=== PATIENT | female | born 2000 | race Caucasian/White ===

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

== ENCOUNTER 2023-06-22 00:15 | Outpatient (CLI) | payer OTHER ==
[2023-06-22 02:02] VITALS: BP 108/60; PULSE 78; RESP 14; TEMP 97.2
--- NOTE | 2023-06-27 11:17 | P.MSEPDOC ---
Presenting Problems - Arrival Data Date of Arrival on Unit: 06/22/23 Time of Arrival on Unit: 00:15 Mode of Transport: Ambulatory - Complaint OB-Reason for Admission/Chief Complaint: Other Comment: pt states she feels like her "vagina is open, going to fall out." pt also c/o vaginal / pelvic pressure, sharp shooting pains, constant lower back pain rating it 10/10, fatigue, and constant, all over itching. pt states she called the office today about the itching, and she has an appt scheduled for tomorrow with Dr Thrasher. pt denies any other complaints or complications with . Medical History - Information : 3 Para: 1 Term: 1 : 0 Abortions: Spontaneous or Elective: 1 Number of Living Children: 1 - Gestational Age Gestational Age by TANYA (wks/days): 28 Weeks and 6 Days Review of Systems - Review of Systems Constitutional: No problems Breast: No problems ENT: No problems Cardiovascular: No problems Respiratory: No problems Gastrointestinal: No problems Genitourinary: No problems Musculoskeletal: No problems Neurological: No problems Skin: No problems Vital Signs - Temperature Temperature: 97.2 F Temperature Source: Temporal Artery Scan - Pulse Pulse Oximetery Pulse Rate: 78 Pulse Assessment Method: Pulse Oximetry - Respirations Respiratory Rate: 14 Oxygen Delivery Method: Room Air O2 Sat by Pulse Oximetry: 100 - Blood Pressure Right Arm Blood Pressure: 108/60 Blood Pressure Mean: 76 Blood Pressure Source: Automatic Cuff Medical Screen Scoring - Assessment - Baby A Baseline FHR: 125 Heart Rate - NICHD Category: Category I (Normal) NST: Reactive Physician Notification - Physician Notified Physician Notified Date: 06/22/23 Physician Notified Time: 00:57 Physician: Yash Thrasher Order Received: Yes Maternal Triage Index - Maternal Triage Index Presenting for scheduled procedure w/no complaint: No - Stat/Priority 1 Stat Priority 1: No - Urgent/Priority 2 Urgent Priority 2: No - Prompt/Priority 3 Prompt Priority 3: No - Non-Urgent/Priority 4 Non-Urgent Priority 4: Yes Criteria Met for Priority 4: Common discomforts of Disposition - Disposition OB Disposition: Discharge to home, Written follow up instructions reviewed Discharge Date: 06/22/23 Discharge Time: 01:05 I agree with the RN Medical Screening Exam: Yes Physician's MSE Comment: I have neither seen nor examined the patient. Case reviewed; plan agreed upon as documented in EMR&OBIX.: Yes Diagnosis: RELATED CONDITIONS, UNSPECIFIED, THIRD TRIMESTER
== END 2023-06-22 01:05 | disposition home or self-care (01) ==
LOC: FBPOP 00:15
PROVIDERS: ATTEND Obstetrics & Gynecology
DX: O26.893 Other specified pregnancy related conditions, third trimester (principal); O26.813 Pregnancy related exhaustion and fatigue, third trimester; M54.50 Low back pain, unspecified; R10.2 Pelvic and perineal pain; L29.9 Pruritus, unspecified; Z3A.28 28 weeks gestation of pregnancy; Z88.2 Allergy status to sulfonamides
CPT/HCPCS: 59025; G0463; 99213

== ENCOUNTER 2023-06-24 16:06 | Outpatient (CLI) | payer OTHER ==
[2023-06-24 19:37] VITALS: BP 108/55; PULSE 85; RESP 17
--- NOTE | 2023-06-27 11:18 | P.MSEPDOC ---
Presenting Problems - Arrival Data Date of Arrival on Unit: 06/24/23 Time of Arrival on Unit: 16:06 Mode of Transport: Ambulatory - Complaint OB-Reason for Admission/Chief Complaint: Rule Out PROM, Pain Comment: pt presents to triage for pain pressure, possible SROM at 1430, Medical History - Information : 2 Para: 1 Term: 1 : 0 Abortions: Spontaneous or Elective: 0 Number of Living Children: 1 - Gestational Age Gestational Age by TANYA (wks/days): 29 Weeks and 1 Days Review of Systems - Review of Systems Constitutional: No problems Breast: No problems ENT: No problems Cardiovascular: No problems Respiratory: No problems Gastrointestinal: No problems Genitourinary: No problems Musculoskeletal: No problems Neurological: No problems Skin: No problems Vital Signs - Pulse Apical Pulse Rate: 85 Pulse Assessment Method: Automatic Cuff - Respirations Respiratory Rate: 17 Oxygen Delivery Method: Room Air - Blood Pressure Right Arm Blood Pressure: 108/55 Blood Pressure Mean: 72 Blood Pressure Source: Automatic Cuff Medical Screen Scoring - Cervical Exam Dilation (cm): 1.5 Membranes: Intact - Uterine Contractions Intensity: Mild Resting: Soft to palpation - Assessment - Baby A Baseline FHR: 135 Heart Rate - NICHD Category: Category I (Normal) NST: Reactive Physician Notification - Physician Notified Physician Notified Date: 06/24/23 Physician Notified Time: 16:48 Physician: Yash Thrasher New Order Received: Yes - Notification Comment Comment: cervical exam 1.5/thick/high, ffn negative, pt discharged home, follow up on Wednesday in office Maternal Triage Index - Maternal Triage Index Presenting for scheduled procedure w/no complaint: No - Stat/Priority 1 Stat Priority 1: No - Urgent/Priority 2 Urgent Priority 2: Yes Provider Notified: Yash Thrasher Provider Notified Time: 16:48 Criteria Met for Priority 2: pt presents to triage for pain pressure, possible SROM at 1430, Disposition - Disposition OB Disposition: Triage, Discharge to home, Written follow up instructions reviewed Discharge Date: 06/24/23 Discharge Time: 18:20 I agree with the RN Medical Screening Exam: Yes Physician's MSE Comment: I have neither seen nor examined the patient. Case reviewed; plan agreed upon as documented in EMR&OBIX.: Yes Diagnosis: RELATED CONDITIONS, UNSPECIFIED, THIRD TRIMESTER
== END 2023-06-24 18:20 | disposition home or self-care (01) ==
LOC: FBPOP 16:06
PROVIDERS: ATTEND Obstetrics & Gynecology
DX: O47.03 False labor before 37 completed weeks of gestation, third trimester (principal); Z3A.29 29 weeks gestation of pregnancy; Z88.2 Allergy status to sulfonamides
CPT/HCPCS: 59025; 84112; 82731; G0463; 99213

== ENCOUNTER 2023-07-22 17:51 | Outpatient (CLI) | payer OTHER ==
[2023-07-22] MEDS: LACTATED RINGERS 1,000 ML IV SCH (19:31)
[2023-07-22 20:00] LABS: RBC,Urine <1 /hpf (0-5); Squamous Epithelial Cell,Urine 1 /hpf (0-4); WBC,Urine <1 /hpf (0-5)
[2023-07-22 20:36] LABS: Appearance,Urine Clear (Clear); Bilirubin,Urine Negative (Negative); Blood,Urine Negative (Negative); Color,Urine Colorless; Glucose,Urine (UA) Negative (Negative); Ketones,Urine Negative (Negative); Leukocyte Esterase,Urine Negative (Negative); Nitrite,Urine Negative (Negative); PH, Urine 7.5 (5.0-8.0); Protein,Urine Negative (Negative); Specific Gravity,Urine 1.006 (1.001-1.035); Urobilinogen,Urine <2.0 mg/dL (<2.0)
[2023-07-22] MEDS ORDERED: TERBUTALINE 1 MG/ML VIAL SQ PRN (20:49)
[2023-07-22] MEDS: BETAMET ACET-BETAMETH SOD PHOS 6 MG/ML MDV IM SCH (21:09)
[2023-07-22] MEDS ORDERED: CALCIUM GLUCONATE 1 GM/10 ML VIAL IV PRN (21:14)
[2023-07-22] MEDS: MAGNESIUM SULFATE GM 6 GM in SODIUM CHLORIDE 0.9% 100 ML IVPB ONE (21:34)
[2023-07-22] MEDS ORDERED: MAGNESIUM SULFATE 500 MG/ML 20 ML VIAL ONE (21:37)
[2023-07-22] MEDS ORDERED: SODIUM CHLORIDE 0.9% 100 ML BAG ONE (21:37)
[2023-07-22] MEDS: MAGNESIUM SULFATE-WATER PMX 20 GM in WATER FOR INJECTION 1 500ML.BAG IV SCH (21:58)
--- NOTE | 2023-07-22 22:09 | P.HPOB ---
History of Present Illness H&P Date: 07/22/23 Chief Complaint: 33-1/7 weeks, labor The patient is a 23-year-old 3 para 1-0-1-1 admitted to triage at 33-1/7 weeks as established by last menstrual period and confirmed by 7-week ultrasound. She is admitted with complaint of possible rupture of membranes wh ich was ruled out with a negative amnio sure. She was, however, found to have irregular contractions at which time initial cervical check demonstrated I reported cervix that was closed and thick. She had IV hydration started and underwent urinalysis which was found to be negative. Her contractions continued and she reported some discomfort and, prior to initiating treatment with terbutaline, her cervix was rechecked at which time it was noted to be 1 cm dilated, approximately 70% effaced, with the vertex and presentation at -2-3 station. Given the change in cervix, preparation is being made for transfer to tertiary care center after starting magnesium sulfate toco lysis. The first dose of steroids has been given and will likely be repeated in 12 to 24 hours. heart tones are category 1 in nature. Obstetrical history: 3 para 1-0-1-1 with 1 term vaginal delivery and 1 early loss without D&C. Current statistics are listed in history of present illness. EDC of 09/08/2023 was established by last menstrual period and confirmed by 7-week ultrasound. Laboratory workup is unavailable to me at this time as my remote application has failed. The full records can be forwarded in the morning when the office is open. All labs to this point have been normal to my knowledge. Gynecologic history: Unremarkable with no history of any infections to include STDs. Review of Systems Review of systems is confined to history of present illness. Past Medical History Past Medical History: Asthma History of Any Multi-Drug Resistant Organisms: MRSA Date of last positivie culture/infection: 2016 MDRO Source:: L leg Past Surgical History: No Surgical Hx Reported Past Anesthesia/Blood Transfusion Reactions: No Reported Reaction Smoking Status: Never smoker - Past Family History Mother Family Medical History: Asthma Additional Family Medical History / Comment(s): depression, anxiety Medications and Allergies Home Medications Medication Instructions Recorded Confirmed Type Vit No.180/Iron/Folic 1 tab PO DAILY 02/11/20 07/22/23 History [ Plus Tablet] FLUoxetine HCL [PROzac] 40 mg PO DAILY 06/22/23 07/22/23 History Omeprazole [PriLOSEC] 10 mg PO DAILY 06/22/23 07/22/23 History Allergies Allergy/AdvReac Type Severity Reaction Status Date / Time Sulfa (Sulfonamide Allergy Rash/Hives Verified 06/22/23 01:18 Antibiotics) Exam Intake and Output 07/22/23 07/22/23 07/22/23 06:59 14:59 22:59 Other: Weight 60.328 kg In general, this is a well-developed, well-nourished white female in no acute distress. Her heart has a regular rhythm and rate without murmur. Her lungs are clear to auscultation bilaterally in all desai. Her abdomen is gravid, nondistended, has normal active bowel sounds, soft, nontender, and without any palpable masses aside from the uterine fundus. Her extremities are without any cyanosis, clubbing, or edema and are nontender to palpation bilaterally. Digital cervical examination as noted in history of present illness is most recently found to be 1 cm dilated, 70% effaced, the vertex and presentation of -2-3 station. There is no evidence of rupture of membranes. Assessment and Plan (1) 33 weeks gestation of Current Visit: Yes Status: Acute Code(s): Z3A.33 - 33 WEEKS GESTATION OF SNOMED Code(s): 71539046 (2) labor Current Visit: Yes Status: Acute Code(s): O60.00 - LABOR WITHOUT DELIVERY, UNSPECIFIED TRIMESTER SNOMED Code(s): 0662669 Plan: The patient is being started on magnesium sulfate, 6 g loading dose with 2 g/h to follow. She has additionally received her first dose of betamethasone 12.5 mg intramuscularly which will be repeated in likely 12 to 24 hours at a tertiary care institution. Antibiotic prophylaxis will additionally be started with penicillin G, 5,000,000 units IV to be continued at the next institution at likely 2,500,000 units every 4-6 hours. wellbeing is noted at this time and the patient is stable for transfer. I have discussed the case with the attending physician at [facility], Dr. Aziza Guan, who has accepted transfer. Preparation is being made for interfacility transfer currently.
[2023-07-22] MEDS: PENICILLIN G POTASSIUM 5,000,000 UNIT in DEXTROSE 5% IN WATER 100 ML IVPB STA (22:17)
[2023-07-22 23:23] VITALS: BP 112/57; PULSE 81
== END 2023-07-22 22:55 | disposition other institution (70) ==
LOC: FBPOP 17:51
PROVIDERS: ATTEND Obstetrics & Gynecology
DX: O60.03 Preterm labor without delivery, third trimester (principal); O09.293 Supervision of pregnancy with other poor reproductive or obstetric history, third trimester; O99.513 Diseases of the respiratory system complicating pregnancy, third trimester; J45.909 Unspecified asthma, uncomplicated; Z88.2 Allergy status to sulfonamides; Z3A.33 33 weeks gestation of pregnancy
CPT/HCPCS: 59025; 96361; 96365; 96367; 51701; 96372; 84112; 36415; 81003; G0463; J3475 ×2; J2540; J0702; 99215

== ENCOUNTER 2023-08-02 17:56 | Outpatient (CLI) | payer OTHER ==
[2023-08-02 19:57] VITALS: BP 109/58; PULSE 82; RESP 16; TEMP 97.6
--- NOTE | 2023-09-08 18:19 | P.MSEPDOC ---
Presenting Problems - Arrival Data Date of Arrival on Unit: 08/02/23 Time of Arrival on Unit: 17:56 Mode of Transport: Ambulatory - Complaint OB-Reason for Admission/Chief Complaint: Rule Out PROM Medical History - Information : 3 Para: 1 Term: 1 : 0 Abortions: Spontaneous or Elective: 1 Number of Living Children: 1 - Gestational Age Gestational Age by TANYA (wks/days): 34 Weeks and 5 Days - History Comment: labor- transferred to [facility] 2 weeks ago Review of Systems - Review of Systems Constitutional: No problems Breast: No problems ENT: No problems Cardiovascular: No problems Respiratory: No problems Gastrointestinal: No problems Genitourinary: No problems Musculoskeletal: No problems Neurological: No problems Skin: No problems Vital Signs - Temperature Temperature: 97.6 F Temperature Source: Temporal Artery Scan - Pulse Right Sitting Pulse Rate: 82 Pulse Assessment Method: Automatic Cuff - Respirations Respiratory Rate: 16 Oxygen Delivery Method: Room Air O2 Sat by Pulse Oximetry: 98 - Blood Pressure Right Arm Blood Pressure: 109/58 Blood Pressure Mean: 75 Blood Pressure Source: Automatic Cuff Medical Screen Scoring - Cervical Exam Dilation (cm): 1.5 Effacement (%): 50 Station: -2 Membranes: Intact - Uterine Contractions Intensity: Mild Resting: Soft to palpation - Assessment - Baby A Baseline FHR: 125 Heart Rate - NICHD Category: Category I (Normal) NST: Reactive Physician Notification - Physician Notified Physician Notified Date: 08/02/23 Physician Notified Time: 19:06 Physician: Holly Izaguirre New Order Received: Yes (d/c home if vag exam same after 1 hour) Maternal Triage Index - Urgent/Priority 2 Urgent Priority 2: Yes Provider Notified: Holly Izaguirre Provider Notified Time: 19:06 Criteria Met for Priority 2: reactive nst, irregular contractions, negative amnisure, vag exam same after 1 hour Disposition - Disposition OB Disposition: Discharge to home Discharge Date: 08/02/23 Discharge Time: 19:40 I agree with the RN Medical Screening Exam: Yes Case reviewed; plan agreed upon as documented in EMR&OBIX.: Yes Diagnosis: FALSE LABOR BEFORE 37 COMPLETED WEEKS OF GEST, THIRD TRI
== END 2023-08-02 19:40 | disposition home or self-care (01) ==
LOC: FBPOP 17:56
PROVIDERS: ATTEND Obstetrics & Gynecology Obstetrics
DX: O47.03 False labor before 37 completed weeks of gestation, third trimester (principal); Z3A.34 34 weeks gestation of pregnancy; Z88.2 Allergy status to sulfonamides
CPT/HCPCS: 59025; 84112; G0463; 99213

== ENCOUNTER 2023-08-10 13:52 | Inpatient (IN) | payer OTHER ==
[2023-08-10] MEDS ORDERED: miSOPROStoL 200 MCG TAB PO PRN (14:55)
[2023-08-10] MEDS ORDERED: LIDOCAINE 0.5% (PF) 5 MG/ML (50 ML SDV) SQ PRN (14:55)
[2023-08-10] MEDS ORDERED: OXYTOCIN 10 UNIT/ML 1 ML VIAL IM PRN (14:55)
[2023-08-10] MEDS ORDERED: TERBUTALINE 1 MG/ML VIAL SQ PRN (14:55)
[2023-08-10] MEDS ORDERED: METHYLERGONOVINE 0.2 MG/ML 1 ML AMP IM PRN (14:55)
[2023-08-10] MEDS ORDERED: TRANEXAMIC 1,000 MG/100ML-NACL 1,000 MG in EMPTY BAG 1 BAG IV PRN (14:55)
[2023-08-10] MEDS ORDERED: CARBOPROST TROMETHAMINE 250 MCG/ML 1 ML AMP IM PRN (14:55)
[2023-08-10] MEDS: OXYTOCIN 30 UNITS/500 ML NS 30 UNIT in SALINE 1 500ML.BAG IV SCH (15:25)
[2023-08-10] MEDS: LACTATED RINGERS 1,000 ML IV SCH (15:25)
[2023-08-10 15:26] LABS: Basophils # (A) 0.1 k/uL (0-0.2); Basophils % (A) 0 %; Eosinophils # (A) 0.1 k/uL (0-0.7); Eosinophils % (A) 1 %; HCT 31.7 % (34.0-46.0); HGB 10.6 gm/dL (11.4-16.0); Lymphocytes # (A) 1.8 k/uL (1.0-4.8); Lymphocytes % (A) 14 %; MCH 28.5 pg (25.0-35.0); MCHC 33.5 g/dL (31.0-37.0); MCV 85.1 fL (80.0-100.0); Mean Platelet Volume 9.6; Monocytes # (A) 0.6 k/uL (0-1.0); Monocytes % (A) 4 %; Neutrophils # (A) 9.9 k/uL (1.3-7.7); Neutrophils % (A) 79 %; Platelet Count 227 k/uL (150-450); RBC 3.73 m/uL (3.80-5.40); RDW 12.9 % (11.5-15.5); WBC 12.7 k/uL (3.8-10.6)
[2023-08-10] MEDS: PENICILLIN G POTASSIUM 5,000,000 UNIT in DEXTROSE 5% IN WATER 100 ML IVPB STA (15:30)
[2023-08-10 16:01] VITALS: RESP 16
[2023-08-10] MEDS: NALBUPHINE 10 MG/ML (10 ML MDV) IV PRN (18:10)
[2023-08-10] MEDS: PENICILLIN G POTASSIUM 2,500,000 UNIT in DEXTROSE 5% IN WATER 100 ML IVPB SCH (19:42)
[2023-08-10] MEDS ORDERED: SODIUM CHLORIDE 0.9% 250 ML BAG ONE (21:40)
[2023-08-10] MEDS ORDERED: fentaNYL (PF) 50 MCG/ML 5 ML AMP ONE (21:40)
[2023-08-10] MEDS ORDERED: ROPIVACAINE 5 MG/ML 30 ML VIAL ONE (21:40)
[2023-08-11] MEDS ORDERED: diphenhydrAMINE 50 MG CAP PO PRN (01:36)
[2023-08-11] MEDS ORDERED: ZOLPIDEM 5 MG TAB PO PRN (01:36)
[2023-08-11] MEDS ORDERED: diphenhydrAMINE 50 MG/ML 1 ML VIAL IVP PRN ×2 (01:36)
[2023-08-11] MEDS ORDERED: LANOLIN CREAM 1 GM TUBE TOPICAL PRN (01:36)
[2023-08-11] MEDS ORDERED: SIMETHICONE 80 MG CHEWABLE PO PRN (01:36)
[2023-08-11] MEDS ORDERED: diphenhydrAMINE 25 MG CAP PO PRN (01:36)
[2023-08-11] MEDS ORDERED: HYDROCORTISONE 2.5% RECTAL CREAM 30 GM TUBE RECTAL PRN (01:36)
--- NOTE | 2023-08-11 01:47 | P.HPOB ---
History of Present Illness H&P Date: 08/11/23 Chief Complaint: Leaking of fluid Ms. Escalera is a 23 year old at 36 weeks and 0 days with EDC of 09/08/2023 by LMP and 7 week US who presents to labor and delivery with history of leaking of clear fluid for 3-4 days prior to presentation. The has been complicated by labor at 32 weeks, for which the patient was transferred to [place] for steroids, Magnesium Sulfate, and monitoring. Ultimately, she was discharged in stable condition. Obstetric history: 1 FTD, no complications; 1 SAB work-up: blood type A positive, antibody negative, rubella immune, VDRL non-reactive, HBsAg negative, HIV negative, HCV Ab negative, gonorrhea negative, chlamydia negative, 1 hour GTT within normal limits, GBS unknown. Past Medical History Past Medical History: Asthma History of Any Multi-Drug Resistant Organisms: MRSA Date of last positivie culture/infection: 2022 MDRO Source:: R Upper Torso Past Surgical History: No Surgical Hx Reported Past Anesthesia/Blood Transfusion Reactions: No Reported Reaction Past Psychological History: No Psychological Hx Reported Smoking Status: Never smoker Past Drug Use History: None Reported - Past Family History Mother Family Medical History: Asthma Additional Family Medical History / Comment(s): depression, anxiety Medications and Allergies Home Medications Medication Instructions Recorded Confirmed Type Vit No.180/Iron/Folic 1 tab PO DAILY 02/11/20 08/10/23 History [ Plus Tablet] FLUoxetine HCL [PROzac] 40 mg PO DAILY 06/22/23 08/10/23 History Omeprazole [PriLOSEC] 10 mg PO DAILY 06/22/23 08/10/23 History Allergies Allergy/AdvReac Type Severity Reaction Status Date / Time Sulfa (Sulfonamide Allergy Rash/Hives Verified 08/10/23 14:10 Antibiotics) Exam Vital Signs Temp Pulse Resp BP Pulse Ox 08/10/23 15:48 97.5 F L 78 16 118/75 08/10/23 15:31 97.5 F L 78 16 117/68 98 Intake and Output 08/10/23 08/10/23 08/11/23 14:59 22:59 06:59 Other: # Voids 2 Weight 61.689 kg 61.689 kg Focused physical exam is performed. This is a healthy-appearing in no apparent distress. Breathing is non-labored. Abdomen is gravid and non-tender. Cervical exam is 8-9 cm, 100% effacement, 0 station. Extremities non- tender and non-edematous. heart tones are Category I and tocometer is graphing contractions every 2-4 minutes. Results Result Diagrams: 08/10/23 15:10 Abnormal Lab Results - Last 24 Hours (Table) 08/10/23 Range/Units 15:10 WBC 12.7 H (3.8-10.6) k/uL RBC 3.73 L (3.80-5.40) m/uL Hgb 10.6 L (11.4-16.0) gm/dL Hct 31.7 L (34.0-46.0) % Neutrophils # 9.9 H (1.3-7.7) k/uL Microbiology - Last 24 Hours (Table) 08/10/23 15:55 Gram Stain - Preliminary Leg - Left Assessment and Plan Assessment: 23 year old at 36 weeks and 0 days presenting with prolonged rupture of membranes Plan: Admit, NPO, pitocin per protocol, PCN G for GBS ppx, continuous EFM and tocometer, close monitoring of patient. Anticipate vaginal delivery. Time with Patient: Less than 30
--- NOTE | 2023-08-11 01:50 | P.PROBDLV ---
Vaginal Delivery Note - . Vaginal Delivery Note: DATE OF SERVICE: 08/11/2023 PROCEDURE: Normal Vaginal Delivery ATTENDING: Dr. Kadie Goodson MD ESTIMATED BLOOD LOSS: 200 mL FINDINGS: VMI, Apgars 8/8. Weight 7 pounds and 0 ounces (3190 grams) PROCEDURE: Ms. Escalera is a 23 year old at 36 weeks presenting to labor and delivery after prolonged PPROM for 3-4 days. The has been complicated by an episode of labor at 32 weeks for which the patient received steroids and Magnesium Sulfate. For further details, please review the admitting H&P. Pitocin was titrated per protocol. The patient received an epidural per her request. The patient was completely dilated at 115. She had excellent expulsive efforts and delivered a viable male was delivered at 121 in direct occiput anterior position. The infant was placed on the maternal abdomen and bulb suctioned. Cord was clamped and cut after a 30-second delay. The infant was handed off to the pediatric team. Placenta was delivered whole with gentle cord traction at 125. Oxytocin was started to facilitate uterine tone. Uterine fundus was found to be firm and below the umbilicus upon fundal massage. Thorough examination of the cervix, vagina, periurethral area, and perineum revealed no lacerations. The patient is stable and allowed to begin the bonding process.
[2023-08-11] MEDS: IBUPROFEN 600 MG TAB PO PRN (03:02)
[2023-08-11] MEDS: BENZOCAINE/MENTHOL SPRAY 1 GM/SPRAY AEROSOL TOPICAL PRN (03:55)
[2023-08-11] MEDS: ACETAMINOPHEN TAB 325 MG TAB PO PRN (06:21)
[2023-08-11] MEDS: SENNOSIDES-DOCUSATE SODIUM 1 EACH TAB PO SCH (08:32)
[2023-08-11] MEDS: FLUoxetine HCL 20 MG CAP PO SCH (16:14)
[2023-08-11] MEDS: CLINDAMYCIN 300 MG in DEXTROSE 5% IN WATER 50 ML IVPB SCH (18:36)
--- NOTE | 2023-08-11 23:04 | P.CONS ---
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 patient presenting to the labor and delivery with a leaking of clear fluid for 3 to 4 hours prior to presentation and the patient is status post normal vaginal delivery patient was noticed to have a lesion on the left lower leg with significant cellulitis for which cultures were obtained patient did receive penicillin G for group B strep prophylaxis prior to delivery infectious disease was consulted for further management of antibiotic as the patient is allergic to sulfa Patient mention correlation to the left leg has been going on for couple of days started as a pimple that has increased in size patient is currently. More of a dull aching to throbbing mild to moderate intensity without any radiation with associated swelling redness and did have some purulent drainage cultures were obtained currently growing gram-positive cocci and did have elevated white count 12.7 Review of Systems Positive point and negatives has been mentioned in the HPI, complete review of systems was performed and all other systems are negative Past Medical History Past Medical History: Asthma History of Any Multi-Drug Resistant Organisms: MRSA Year Discovered:: 2022 MDRO Source:: R Upper Torso Past Surgical History: No Surgical Hx Reported Past Anesthesia/Blood Transfusion Reactions: No Reported Reaction Past Psychological History: No Psychological Hx Reported Smoking Status: Never smoker Past Drug Use History: None Reported - Past Family History Mother Family Medical History: Asthma Additional Family Medical History / Comment(s): depression, anxiety Medications and Allergies Home Medications Medication Instructions Recorded Confirmed Type Vit No.180/Iron/Folic 1 tab PO DAILY 02/11/20 08/10/23 History [ Plus Tablet] FLUoxetine HCL [PROzac] 40 mg PO DAILY 06/22/23 08/10/23 History Omeprazole [PriLOSEC] 10 mg PO DAILY 06/22/23 08/10/23 History Clindamycin [Cleocin] 300 mg PO Q8H 2 Days #12 cap 08/13/23 Rx Allergies Allergy/AdvReac Type Severity Reaction Status Date / Time Sulfa (Sulfonamide Allergy Rash/Hives Verified 08/10/23 14:10 Antibiotics) Physical Exam Vitals: Vital Signs Temp Pulse Pulse Resp BP BP Pulse Ox 08/11/23 15:59 97.7 F 72 16 125/82 99 08/11/23 13:20 97.8 F 67 16 117/78 100 08/11/23 08:00 98.3 F 80 16 111/70 08/11/23 05:30 98.3 F 91 16 99/57 08/11/23 03:30 98.0 F 85 16 121/59 08/11/23 03:15 75 16 110/60 08/11/23 03:00 85 16 116/70 08/11/23 02:45 87 16 115/65 08/11/23 02:30 107 H 16 115/65 08/11/23 02:15 94 16 108/56 08/11/23 02:00 90 16 110/62 08/11/23 01:45 97 16 111/58 08/11/23 01:30 99.3 F 100 16 111/59 Intake and Output 08/11/23 08/11/23 08/11/23 06:59 14:59 22:59 Intake Total 600 Output Total 450 Balance -450 600 Intake: Oral 600 Output: Estimated Blood Loss 200 Output, Quantitative 250 Blood Loss Other: # Voids 1 1 1 Middle-age female lying in bed in no distress Unlabored breathing clear to auscultation Heart S1-S2 regular rate rhythm Left lower extremity with small area of folliculitis with purulent drainage tender to touch Neurologically patient is awake alert orient x 3 mood affect is normal Results CBC & Chem 7: 08/12/23 06:21 Labs: Microbiology - Last 24 Hours (Table) 08/10/23 15:55 Gram Stain - Preliminary Leg - Left Assessment and Plan (1) Left leg cellulitis Current Visit: Yes Status: Acute Code(s): L03.116 - CELLULITIS OF LEFT LOWER LIMB SNOMED Code(s): 29604130637507593 (2) MRSA (methicillin resistant staph aureus) culture positive Current Visit: Yes Status: Acute Code(s): Z22.322 - CARRIER OR SUSPECTED CARRIER OF METHICILLIN RESIS STAPH SNOMED Code(s): 412649748 Plan: 1patient with a left lower extremity folliculitis and area of cellulitis likely from Staphylococcus aureus in this patient who did have a history of MRSA infection likely related to MRSA with the cultures currently pending 2-patient did have sulfa allergy that will limit the number of antibiotics safe to use and the patient want to breast-feed her baby 3-we will start the patient on clindamycin 300 mg every 8 hours while waiting for the culture to finalize We will follow on clinical condition and cultures to further adjust medication i f needed Thank you for this consultation we will follow the patient along with you Dictation was produced using [employer] dictation software. please excuse any grammatical, word or spelling errors. Time with Patient: Greater than 30
[2023-08-12 07:08] LABS: Basophils # (A) 0.1 k/uL (0-0.2); Basophils % (A) 1 %; Eosinophils # (A) 0.1 k/uL (0-0.7); Eosinophils % (A) 1 %; HCT 30.7 % (34.0-46.0); HGB 10.1 gm/dL (11.4-16.0); Hypochromasia Moderate; Lymphocytes # (A) 2.2 k/uL (1.0-4.8); Lymphocytes % (A) 17 %; MCH 28.7 pg (25.0-35.0); MCV 86.9 fL (80.0-100.0); Mean Platelet Volume 10.4; Monocytes # (A) 0.5 k/uL (0-1.0); Monocytes % (A) 4 %; Neutrophils # (A) 9.9 k/uL (1.3-7.7); Neutrophils % (A) 75 %; Platelet Count 204 k/uL (150-450); Poikilocytosis Slight; RBC 3.53 m/uL (3.80-5.40); RDW 13.3 % (11.5-15.5); WBC 13.3 k/uL (3.8-10.6)
--- NOTE | 2023-08-12 09:11 | P.PNOBGVD ---
Subjective - Subjective Interval history: The patient is requesting to increase her dose of Prozac to 60 mg which is her prepregnancy dose. Patient reports: Reports appetite normal, Reports voiding normally, Reports pain well controlled, Reports ambulating normally Robertson: doing well, in NICU (Requiring supplemental oxygen and prophylactic antibiotics.) Objective - Latest Vital Signs Latest vital signs: Vital Signs Temp Pulse Resp BP Pulse Ox 08/12/23 08:00 98.5 F 78 16 115/62 08/11/23 23:00 98.2 F 79 16 102/66 08/11/23 15:59 97.7 F 72 16 125/82 99 08/11/23 13:20 97.8 F 67 16 117/78 100 Intake and Output 08/11/23 08/12/23 08/12/23 22:59 06:59 14:59 Intake Total 1560 48 Balance 1560 48 Intake: Oral 1560 48 Other: # Voids 1 2 1 - Exam Extremities: Present: normal Abdomen: Present: normal appearance, soft Uterus: Present: normal, firm (The uterine fundus is tonic and nontender below the umbilicus.) - Labs Labs: Abnormal Lab Results - Last 24 Hours (Table) 08/12/23 Range/Units 06:21 WBC 13.3 H (3.8-10.6) k/uL RBC 3.53 L (3.80-5.40) m/uL Hgb 10.1 L (11.4-16.0) gm/dL Hct 30.7 L (34.0-46.0) % Neutrophils # 9.9 H (1.3-7.7) k/uL Microbiology - Last 24 Hours (Table) 08/10/23 15:55 Gram Stain - Preliminary Leg - Left Wound Culture - Preliminary Presumptive MRSA Assessment and Plan (1) Normal spontaneous vaginal delivery Current Visit: No Status: Acute Code(s): O80 - ENCOUNTER FOR FULL-TERM UNCOMPLICATED DELIVERY SNOMED Code(s): 53580714 Plan: Continue routine care. I would anticipate discharge home tomorrow pending no complications. Prozac will be increased to 60 mg daily.
[2023-08-12] MEDS: LACTOBACILLUS ACIDOPHILUS/PECT 1 EACH CAPSULE PO SCH (13:20)
--- NOTE | 2023-08-12 15:04 | P.PN ---
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 On today's evaluation that is 08/12/2023,the patient remains to be afebrile, patient is on room air not requiring supplemental oxygen and denies any shortness of breath no chest pain or cough.Patient denies having any nausea or vomiting, no abdominal pain and no diarrhea, left lower extremity pain and swelling has improved has been complaining of IV. Patient white count is 13.3 culture with present MRSA Objective - Vital Signs Vital signs: Vital Signs Temp 98.5 F 08/12/23 08:00 Pulse 78 08/12/23 08:00 Resp 16 08/12/23 08:00 BP 115/62 08/12/23 08:00 Pulse Ox 99 08/11/23 15:59 FiO2 Intake & Output 08/11/23 08/12/23 08/12/23 18:59 06:59 18:59 Intake Total 600 1008 Balance 600 1008 Intake: Oral 600 1008 Other: # Voids 1 2 1 - Exam Middle-age female lying in bed in no distress Left lower extremity overall swelling redness has decreased and no purulent drainage - Labs CBC & Chem 7: 08/12/23 06:21 Labs: Abnormal Lab Results - Last 24 Hours (Table) 08/12/23 Range/Units 06:21 WBC 13.3 H (3.8-10.6) k/uL RBC 3.53 L (3.80-5.40) m/uL Hgb 10.1 L (11.4-16.0) gm/dL Hct 30.7 L (34.0-46.0) % Neutrophils # 9.9 H (1.3-7.7) k/uL Microbiology - Last 24 Hours (Table) 08/10/23 15:55 Gram Stain - Preliminary Leg - Left Wound Culture - Preliminary Presumptive MRSA Assessment and Plan (1) Left leg cellulitis Current Visit: Yes Status: Acute Code(s): L03.116 - CELLULITIS OF LEFT LOWER LIMB SNOMED Code(s): 63683049066461849 (2) MRSA (methicillin resistant staph aureus) culture positive Current Visit: Yes Status: Acute Code(s): Z22.322 - CARRIER OR SUSPECTED CARRIER OF METHICILLIN RESIS STAPH SNOMED Code(s): 323685428 Plan: 1patient with a left lower extremity folliculitis and area of cellulitis likely from Staphylococcus aureus in this patient who did have a history of MRSA infect ion likely related to MRSA with the cultures currently pending 2-patient did have sulfa allergy that will limit the number of antibiotics safe to use and the patient want to breast-feed her baby 3-patient better has been switched over to oral clindamycin 300 mg every 8 hours which she may need further 2 to 3 days Dictation was produced using [employer] dictation software. please excuse any grammatical, word or spelling errors. Time with Patient: Less than 30
[2023-08-12] MEDS: CLINDAMYCIN 150 MG CAP PO SCH (16:25)
[2023-08-13] MEDS: LACTATED RINGERS 1,000 ML IV SCH (07:49)
[2023-08-13] MEDS: FLUoxetine HCL 20 MG CAP PO STA (07:50)
[2023-08-13] MEDS: FLUoxetine HCL 20 MG CAP PO SCH (08:50)
--- NOTE | 2023-08-13 11:41 | P.DS ---
Providers Date of admission: 08/10/23 14:55 Expected date of discharge: 08/13/23 Attending physician: Yash Thrasher Consults: 08/11/23 14:26 Consult Physician Urgent Consulting Provider: Don Cannon Consult Reason/Comments: positive wound culture, pt hx of MRSA, allery to sulfa Do you want consulting provider notified?: Yes Primary care physician: Stated None - Discharge Diagnosis(es) (1) Normal spontaneous vaginal delivery Current Visit: No Status: Acute Hospital Course: Patient is a 23-year-old 3 para 1-0-1-1 admitted at 36 0/7 weeks as established by last menstrual period and confirmed by 7-week ultrasound. She is admitted with documented spontaneous rupture of membranes for possibly up to 3 days prior to presentation. Her was complicated by an episode of labor at 32 weeks for which she was transferred to a tertiary care institution and received steroid prophylaxis as well as magnesium sulfate. She was ultimately then discharged back to our practice and continue to have routine care until with presentation to the hospital at this time. On labor delivery, she had antibiotic prophylaxis started as well as Pitocin augmentation. She ultimately had an epidural catheter placed for analgesia and progressed to complete or after she pushed to a normal spontaneous vaginal delivery of a viable 7 pound 0 ounce baby boy with Apgars of 8 at 1 minute and 8 at 5 minutes. Her course was unremarkable with vital signs remaining stable and her temperature was afebrile throughout. She was noted upon admission to have a lesion on her leg consistent with possible MRSA infection and carries a history of the same on multiple occasions in the past. As a result, infectious disease consultation was sought and antibiotic prophylaxis was started with clindamycin. The patient was deemed stable for discharge on day #2 and was discharged home to follow-up in the office in 6 weeks time routinely. Discharge instructions included calling for any significantly increased bleeding or foul-smelling lochia, significantly increased fever or abdominal pain, perineal complaints, breast complaints, or anything else that concerned her. She was additionally instructed to have nothing in the vagina for at least 6 weeks time to include intercourse. She understood her instructions and agrees to follow-up as noted above. Discharge medications included only [id number] analgesic pain medications. Her discharge antibiotics for MRSA will be left in the hands of infectious disease. Maternal blood type is a positive and rubella status is immune. Procedures: #1. Antibiotic prophylaxis #2. Pitocin augmentation #3. Epidural analgesia #4. Normal spontaneous vaginal delivery #5. Infectious disease consultation Patient Condition at Discharge: Stable Plan - Discharge Summary New Discharge Prescriptions: No Action Vit No.180/Iron/Folic [ Plus Tablet] 1 tab PO DAILY FLUoxetine HCL [PROzac] 40 mg PO DAILY Omeprazole [PriLOSEC] 10 mg PO DAILY Discharge Medication List Vit No.180/Iron/Folic [ Plus Tablet] 1 tab PO DAILY 02/11/20 [History] FLUoxetine HCL [PROzac] 40 mg PO DAILY 06/22/23 [History] Omeprazole [PriLOSEC] 10 mg PO DAILY 06/22/23 [History] Follow up Appointment(s)/Referral(s): Yash Thrasher MD [STAFF PHYSICIAN] - 6 Weeks Discharge Disposition: HOME SELF-CARE
--- NOTE | 2023-08-13 16:09 | P.PN ---
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 On today's evaluation that is 08/13/2023, the patient continues to be afebrile, the patient is on room air and breathing comfortably, the Pt denies having any chest pain or cough, the patient denies having any abdominal pain no vomiting or any diarrhea overall pain discomfort to the left lower extremity has decreased in intensity no further drainage. Culture has been finalized with MRSA sensitive to clindamycin Objective - Vital Signs Vital signs: Vital Signs Temp 98.7 F 08/13/23 08:00 Pulse 90 08/13/23 08:00 Resp 16 08/13/23 08:00 BP 111/71 08/13/23 08:00 Pulse Ox 100 08/13/23 08:00 FiO2 Intake & Output 08/12/23 08/13/23 08/13/23 18:59 06:59 18:59 Intake Total 960 Balance 960 Intake: Oral 960 Other: # Voids 1 2 1 - Exam Middle-age female lying in bed in no distress Left lower extremity overall swelling redness has decreased and no purulent drainage - Labs CBC & Chem 7: 08/12/23 06:21 Assessment and Plan (1) Left leg cellulitis Current Visit: Yes Status: Acute Code(s): L03.116 - CELLULITIS OF LEFT LOWER LIMB SNOMED Code(s): 61971323429383926 (2) MRSA (methicillin resistant staph aureus) culture positive Current Visit: Yes Status: Acute Code(s): Z22.322 - CARRIER OR SUSPECTED CARRIER OF METHICILLIN RESIS STAPH SNOMED Code(s): 796269630 Plan: 1patient with a left lower extremity folliculitis and area of cellulitis likely from Staphylococcus aureus in this patient who did have a history of MRSA infection likely related to MRSA with the cultures currently pending 2-patient did have sulfa allergy that will limit the number of antibiotics safe to use and the patient want to breast-feed her baby 3-patient left lower extremity swelling redness is improved she will finish therapy with oral clindamycin 300 mg every 8 hours X 2 days prescription was sent to the pharmacy, she has been instructed with baking soda bath to prevent recurrent skin soft tissue infection question concern answered Dictation was produced using [employer] dictation software. please excuse any grammatical, word or spelling errors. Time with Patient: Less than 30
[2023-08-13 18:52] VITALS: BP 106/64; PULSE 96; TEMP 98.8
== END 2023-08-13 20:40 | disposition home or self-care (01) | DRG 560 ==
LOC: FBPOP 13:52 → 4FBP 14:55
PROVIDERS: ADMIT Obstetrics & Gynecology; ATTEND Obstetrics & Gynecology
PROC: 10E0XZZ Delivery of Products of Conception, External Approach (ICD-10-PCS; principal; 2023-08-11)
PROC: 3E033VJ Introduction of Other Hormone into Peripheral Vein, Percutaneous Approach (ICD-10-PCS; 2023-08-11)
DX: O42.913 Preterm premature rupture of membranes, unspecified as to length of time between rupture and onset of labor, third trimester (principal); O60.14X0 Preterm labor third trimester with preterm delivery third trimester, not applicable or unspecified; Z3A.36 36 weeks gestation of pregnancy; Z79.899 Other long term (current) drug therapy; Z86.14 Personal history of Methicillin resistant Staphylococcus aureus infection; Z88.2 Allergy status to sulfonamides; Z37.0 Single live birth; O99.72 Diseases of the skin and subcutaneous tissue complicating childbirth; Z81.8 Family history of other mental and behavioral disorders; J45.909 Unspecified asthma, uncomplicated; L03.116 Cellulitis of left lower limb; B95.62 Methicillin resistant Staphylococcus aureus infection as the cause of diseases classified elsewhere; O99.52 Diseases of the respiratory system complicating childbirth
CPT/HCPCS: 59025; 84112; 85025; 86850; 86900; 86901; 87070; 87077; 87186; 87205; 88307; 99213